=== PATIENT | male | born 1955 | race Caucasian/White ===

== ENCOUNTER 2017-09-29 07:20 | Day surgery (SDC) | payer OTHER ==
--- OUTSIDE RECORDS SUMMARY | 2017-09-29 07:23 | XMS REPORT ---
:1955 Author Organization e[employer]Works Care Team Providers Name Role Phone Lucía Medrano Provider Role Unavailable Allergies, Adverse Reactions, Alerts Substance Reaction Event Type Lisinopril chest tightness,dizziness Drug Allergy Problems Problem Type Condition Code Onset Dates Condition Status Assessment Dysuria R30.0 Active Assessment Hematuria, unspecified type R31.9 Active Problem Gastroesophageal reflux K21.9 Active Problem Benign prostatic hypertrophy N40.0 Active Problem Hyperlipidemia E78.5 Active Problem Male erectile disorder N52.9 Active Assessment Acute cystitis with hematuria N30.01 Active Problem Shoulder sprain S43.409A Active Problem Acute rhinitis J00 Active Medications Medication Code Code Instructions Start End Date Status Dosage System Date Ciprofloxacin [facility] 91337896593 500 MG Orally August Active 1 tablet HCl every 12 hrs 2017 Flomax [facility] 98317620515 0.4 MG Active TAKE ONE CAPSULE BY MOUTH EVERY DAY Cialis [facility] 21455030720 20 MG Orally Active 1 tablet Protonix [facility] 76107758548 40 MG Orally Active 1 tablet Once a day Valsartan [facility] 03216052938 40 MG Orally Active 1 tablet Once a day Results Name Result Date Reference Range Unit Abnormality Flag URINALYSIS AUTO W/O SCOPE (67581) ----NIT N 20170812 ----URO 1.0 20170812 ----PROTEIN TR 20170812 ----pH 7.0 20170812 ----BLO TR 20170812 ----GLUCOSE N 20170812 ----EITAN 2+ 20170812 ----BILIRUBIN N 20170812 ----KETONES N 20170812 ----SPECIFIC GRAVITY 1.015 20170812 Summary Purpose eClinicalWorks Submission
--- OUTSIDE RECORDS SUMMARY | 2017-09-29 07:23 | XMS REPORT ---
:1955 Author Organization [employer] Care Team Providers Name Role Phone George Palencia Provider Role Unavailable Allergies, Adverse Reactions, Alerts Substance Reaction Event Type Lisinopril chest tightness,dizziness Drug Allergy Problems Problem Type Condition Code Onset Dates Condition Status Problem Gastroesophageal reflux K21.9 Active Problem Benign prostatic hypertrophy N40.0 Active Problem Hyperlipidemia E78.5 Active Problem Male erectile disorder N52.9 Active Assessment Encounter for screening Z12.11 Active colonoscopy Problem Shoulder sprain S43.409A Active Problem Acute rhinitis J00 Active Medications Medication Code System Code Instructions Start End Date Status Dosage Date Valsartan [facility] 03458075644 40 MG Orally Active 1 tablet Once a day Cialis [facility] 49799790813 20 MG Orally Active 1 tablet Protonix [facility] 36668975041 40 MG Orally Active 1 tablet Once a day Flomax [facility] 42452349238 0.4 MG Active TAKE ONE CAPSULE BY MOUTH EVERY DAY Results No Known Results Summary Purpose eClinicalWorks Submission
[2017-09-29] MEDS ORDERED: Ringers Lactate 1,000 ML IV ONE (07:28)
[2017-09-29] MEDS ORDERED: PROPOFOL 200 MG/20 ML VIAL IV ONE (08:27)
--- NOTE | 2017-09-29 09:40 | ENDO RPT ---
[address], [address] COLONOSCOPY PROCEDURE REPORT EXAM DATE: 09/29/2017 PATIENT NAME: Dwight Vazquez MR #: [id number] BIRTHDATE: 1955 ATTENDING: George Palencia DR STATUS: outpatient SCOUT EXECUTIVE: Marisela Fallon and Rachelle Biswas RN INDICATIONS: The patient is a 61 yr old Male here for a colonoscopy due to colon cancer screening PROCEDURE PERFORMED: Colonoscopy and Screening Colonoscopy MEDICATIONS: Per Anesthesia. ESTIMATED BLOOD LOSS: None CONSENT: The patient understands the risks and benefits of the procedure and understands that these risks include, but are not limited to: sedation, allergic reaction, infection, perforation and/or bleeding. Alternative means of evaluation and treatment include, among others: physical exam, x-rays, and/or surgical intervention. The patient elects to proceed with this endoscopic procedure. DESCRIPTION OF PROCEDURE: During intra-op preparation period all mechanical medical equipment was checked for proper function. Hand hygiene and appropriate measures for infection prevention was taken. Procedure, possible complications, alternatives including, but not limited to possibility of bleeding, perforation, tear, infection, sepsis, need for surgery, need for blood transfusion, were explained to the patient. After the risks, benefits and alternatives of the procedure were thoroughly explained, Informed consent was verified, confirmed and timeout was successfully executed by the treatment team. The patient was placed in the left lateral position. A digital rectal exam was performed and revealed internal hemorrhoids. After appropriate level of anesthesia, the scope was passed. The EC-[id number] ([id number]) endoscope was introduced through the anus and advanced to the cecum, which was identified by both the appendix and ileocecal valve. The quality of the prep was fair. The instrument was then slowly withdrawn as the colon was fully examined. Scope withdrawal time was 10 minutes. COLON FINDINGS: Mild diverticulosis was noted throughout the entire examined colon. No bleeding was noted from the diverticulosis. Small internal hemorrhoids were found. Retroflexed views revealed no abnormalities. The scope was then completely withdrawn from the patient and the procedure terminated. ADVERSE EVENTS: There were no complications. IMPRESSIONS: 1. Mild diverticulosis was noted throughout the entire examined colon 2. Small internal hemorrhoids RECOMMENDATIONS: 1. fiber rich diet 2. follow-up: office 4 year(s) 3. Monitor for any evidence of rectal bleeding. 4. yearly hemoccult starting in 4 years RECALL: Return in 10 year(s) for Colonoscopy. George Palencia DR eSigned: George Palencia DR 09/29/2017 9:39 AM cc: CPT CODES: ICD9 CODES: PATIENT NAME: Dwight Vazquez MR#: [id number]
== END 2017-09-29 09:47 | disposition home or self-care (01) ==
LOC: OR 07:20
PROVIDERS: ATTEND Surgery
PROC: 0DJD8ZZ Inspection of Lower Intestinal Tract, Via Natural or Artificial Opening Endoscopic (ICD-10-PCS; principal; 2017-09-29 08:30)
DX: Z12.11 Encounter for screening for malignant neoplasm of colon (principal); K57.90 Diverticulosis of intestine, part unspecified, without perforation or abscess without bleeding; K64.8 Other hemorrhoids; K21.9 Gastro-esophageal reflux disease without esophagitis; E78.5 Hyperlipidemia, unspecified; N40.0 Benign prostatic hyperplasia without lower urinary tract symptoms; Z87.891 Personal history of nicotine dependence; Z80.1 Family history of malignant neoplasm of trachea, bronchus and lung; Z80.8 Family history of malignant neoplasm of other organs or systems; I10 Essential (primary) hypertension

== ENCOUNTER 2023-01-06 10:28 | Day surgery (SDC) | payer OTHER ==
[2023-01-03 13:36] LABS: Potassium 4.3 mEq/L (3.5-5.1)
[2023-01-06] MEDS ORDERED: Ringers Lactate 1,000 ML IV ONE (11:05)
[2023-01-06] MEDS ORDERED: LIDOCAINE 1% MPF 2 ML AMPULE ONE (11:19)
[2023-01-06] MEDS ORDERED: propofoL 200 MG/20 ML VIAL IV ONE (11:19)
[2023-01-06 12:39] VITALS: TEMP 97.3
[2023-01-06 13:28] VITALS: BP 148/80; O2SAT 98
== END 2023-01-06 13:15 | disposition home or self-care (01) ==
LOC: OR 10:28
PROVIDERS: ATTEND Surgery
PROC: 0DBL8ZX Excision of Transverse Colon, Via Natural or Artificial Opening Endoscopic, Diagnostic (ICD-10-PCS; 2023-01-06)
PROC: 0DBC8ZX Excision of Ileocecal Valve, Via Natural or Artificial Opening Endoscopic, Diagnostic (ICD-10-PCS; 2023-01-06)
PROC: 0DBH8ZX Excision of Cecum, Via Natural or Artificial Opening Endoscopic, Diagnostic (ICD-10-PCS; 2023-01-06)
PROC: 0DBK8ZX Excision of Ascending Colon, Via Natural or Artificial Opening Endoscopic, Diagnostic (ICD-10-PCS; principal; 2023-01-06 12:00)
DX: K59.09 Other constipation (principal); N42.9 Disorder of prostate, unspecified; K64.8 Other hemorrhoids; D12.2 Benign neoplasm of ascending colon; D12.3 Benign neoplasm of transverse colon; K52.9 Noninfective gastroenteritis and colitis, unspecified; K62.89 Other specified diseases of anus and rectum
CPT/HCPCS: 45385; 45380; 80048; 36415; 88305; J2704; J7120

== ENCOUNTER 2023-07-15 12:45 | Day surgery (SDC) | payer OTHER ==
[2023-07-11 15:03] LABS: Absolute Lymphocytes (CBC) 1.6 K/uL (0.7-4.9); Basophils % 0.3 % (0-1.3); Eosinophils % 0.5 % (0-4.4); Hematocrit 43.7 % (39.6-49.0); Hemoglobin 15.1 g/dL (13.6-17.9); Lymphocytes % 21.2 % (15.3-44.8); MCV 91.5 fL (80-100); MPV 8.2 fL (7.6-11.3); Platelets 207 thou/uL (152-406); RBC Red Blood Cell Count 4.77 M/uL (4.33-5.43)
[2023-07-11 15:12] LABS: Protime INR 1.02
[2023-07-11 15:17] LABS: Anion Gap 6.7 mEq/L (5.0-15.0); Potassium 4.7 mEq/L (3.5-5.1)
--- NOTE | 2023-07-11 15:32 | RAD REPORT ---
EXAM DESCRIPTION: Daysi Graham And Kristen (2 Views)07/11/2023 3:00 pm CLINICAL HISTORY: Preop for cardiac catheterization. Hypertension COMPARISON: 2016 FINDINGS: The lungs appear clear of acute infiltrate. The heart is normal size IMPRESSION: No acute abnormalities displayed
--- NOTE | 2023-07-14 16:05 | EKG ---
Test Date: 2023-07-11 Test Time: 15:44:06 Sports Manager: TOVA MEASUREMENT RESULTS: Intervals: Rate: 72 NM: 166 QRSD: 84 QT: 368 QTc: 402 [place]: P: 33 NM: 166 QRS: 26 T: 49 INTERPRETIVE STATEMENTS: Normal sinus rhythm Normal ECG Compared to ECG 04/30/2010 15:04:44 No significant changes Electronically Signed On 07-14-23 16:04:31 [employer] by Junior Salazar
[2023-07-15] MEDS: NA CHLORIDE 0.9% 500 ML ONE (13:00)
[2023-07-15] MEDS ORDERED: HEPA 1000U/500MLS 2,000 UNIT/1,000 ML BAG IV ONE (14:05)
[2023-07-15] MEDS ORDERED: LIDOCAINE 1% 20 ML MDV ONE (14:05)
[2023-07-15] MEDS ORDERED: ATROPINE SULF 1 MG/10 ML SYR IV ONE (14:05)
[2023-07-15] MEDS ORDERED: HEPARIN 5000 UNIT/ML 1 ML VIAL ONE (14:06)
[2023-07-15] MEDS ORDERED: CLOPIDOGREL 75 MG TABLET ONE (14:06)
[2023-07-15] MEDS ORDERED: HEPARIN 10,000 UNIT/10 ML VIAL IV ONE (14:06)
[2023-07-15] MEDS ORDERED: ASPIRIN 325 MG TAB ONE (14:06)
[2023-07-15] MEDS ORDERED: TICAGRELOR 90 MG TABLET PO ONE (14:06)
[2023-07-15] MEDS ORDERED: FENTANYL CITR 100 MCG/2 ML ONE (14:07)
[2023-07-15] MEDS ORDERED: VERAPAMIL HCL 10 MG/4 ML VIAL IV ONE (14:07)
[2023-07-15] MEDS ORDERED: MIDAZOLAM HCL 2 MG/2 ML INJ ONE (14:07)
[2023-07-15] MEDS ORDERED: FAMOTIDINE 20 MG TAB ONE (14:41)
[2023-07-15 18:42] VITALS: BP 145/81; TEMP 97.3; O2SAT 99
--- NOTE | 2023-07-15 19:09 | OP ---
Date of Procedure: 07/15/2023 Surgeon: LENO DANIEL Procedures Performed: 1.Selective coronary angiogram. 2.Left heart catheterization. 3.PCI of severe mid RCA stenosis, which is the culprit, used 4.0 x 20 mm Synergy drug-eluting stent. Indication: Unstable angina with abnormal stress test. Access: Right radial artery 6-Tongan, closed with TR band. Complications: None. Bleeding: Less than 50 mL. Anesthesia: Total sedation time was 55 minutes, used fentanyl and Versed. Description Of Procedure: After risks, benefits, and alternatives were explained, the patient agreed to procedure and signed informed consent. The patient was brought into the cardiac catheterization laboratory, prepped and draped in usual sterile fashion. Then, I accessed right radial artery using pediatric micropuncture kit, placed a 6-Tongan Slender sheath, and took 5-Tongan tiger 4 catheter int o the aortic root over J-wire, engaged left main, right coronary artery, took standard views. Cathet er was pushed over the wire into the LV, measured the LVEDP. Pullback did not record any gradient. I then exchanged for a 6-Tongan JR4 guide, engaged the RCA, and gave systemic heparin to assure ACT l evel above 250 throughout the procedure and loaded with 600 mg of Plavix and 325 aspirin and then I t ook short run-through wire into the RCA, placed it distally, took a 3.0 noncompliant balloon, lesion expanded very well, and then used 3.5 noncompliant balloon and the lesion expanded further. Then, I took 4.0 x 20 mm Synergy drug-eluting stent across the proximal to mid RCA stenosis, excellent expans ion, 0% residual stenosis and BONITA-3 flow at the end. Wire was removed. Final angiogram was satisfa ctory and removed the guide and the sheath, placed TR band with good hemostasis. Findings: 1.Left main, proximal 10% stenosis. It is very large vessel. 2.LAD, moderate to large size in the proximal segment. There is 30% to 40% stenosis. At the diagon al takeoff, there is focal 30% and then with luminal irregularity and tapers down to become smaller a rtery. 3.Left circumflex; moderate size, proximal 20%. The rest of the left circumflex with luminal irregu larities. 4.RCA, proximal 30%, mid and long, heavily calcified 90% stenosis, status post successful PCI as abo ve. Then, the artery becomes with luminal irregularities and mild aneurysmal dilation. Distally bef ore the bifurcation, there is focal 40% stenosis and the PDA has mid 60% stenosis. The LV has lumina l irregularities. 5.LVEDP is 8 mmHg. Conclusions: 1.Severe mid RCA stenosis, status post successful PCI as above. 2.Moderate coronary artery disease elsewhere. Plan: Aspirin, Plavix, high-dose statin. SR/MODL Voice ID: [id number] Report ID: [id number]
== END 2023-07-15 18:05 | disposition home or self-care (01) ==
LOC: CCL 12:45
PROVIDERS: ATTEND Internal Medicine Interventional Cardiology
DX: I25.110 Atherosclerotic heart disease of native coronary artery with unstable angina pectoris (principal); R42 Dizziness and giddiness; K21.9 Gastro-esophageal reflux disease without esophagitis; N40.0 Benign prostatic hyperplasia without lower urinary tract symptoms; Z79.899 Other long term (current) drug therapy
CPT/HCPCS: 93005; 85025; 80048; 36415; 85610; 85730; 71046; 93458; 76937; C1893; Q9967; C1725; C9600; J1644; J2001; J2250; J3010; J7040; 85347; 99152; 99153; J0461

== ENCOUNTER 2024-08-25 09:23 | Day surgery (SDC) | payer OTHER ==
[2024-08-24 12:14] LABS: Absolute Lymphocytes (CBC) 1.4 K/uL (0.7-4.9); Absolute Monocytes 0.4 K/uL (0.1-1.3); Absolute Neutrophil 5.7 K/uL (1.8-8.0); Basophils % 0.4 % (0-1.3); Eosinophils % 0.4 % (0-4.4); Hematocrit 42.6 % (39.6-49.0); Hemoglobin 15.4 g/dL (13.6-17.9); Lymphocytes % 18.2 % (15.3-44.8); MCHC 36.1 g/dL (32.0-36.0); MCV 94.2 fL (80-100); MPV 8.9 fL (7.6-11.3); Monocytes % 5.2 % (3.3-12.3); Neutrophils % 75.8 % (41.7-73.7); Platelets 200 thou/uL (152-406); RBC Red Blood Cell Count 4.52 M/uL (4.33-5.43); Red Cell Distribution Width 13.1 % (12.1-15.2)
[2024-08-24 12:20] LABS: PT Prothrombin Time 10.9 SECONDS (10-13.0); PTT, Activated Partial Thromb 30.8 SECONDS (27.2-37.4); Protime INR 0.95
[2024-08-24 12:33] LABS: Anion Gap 9.3 mEq/L (5.0-15.0); Potassium 4.3 mEq/L (3.5-5.1)
[2024-08-25] MEDS: Ringers Lactate 1,000 ML IV ONE (10:02)
[2024-08-25] MEDS ORDERED: LIDOCAINE 1% MPF 30 ML VIAL ONE (11:16)
[2024-08-25] MEDS ORDERED: propofoL 200 MG/20 ML VIAL IV ONE (11:16)
[2024-08-25] MEDS ORDERED: NA CHLORIDE 0.9% 1,000 ML ONE (12:21)
[2024-08-25 13:44] VITALS: TEMP 97.1
[2024-08-25 13:47] VITALS: BP 164/90; O2SAT 100
== END 2024-08-25 13:10 | disposition home or self-care (01) ==
LOC: OR 09:23
PROVIDERS: ATTEND Surgery
PROC: 0DBL8ZX Excision of Transverse Colon, Via Natural or Artificial Opening Endoscopic, Diagnostic (ICD-10-PCS; 2024-08-25)
PROC: 0DBF8ZX Excision of Right Large Intestine, Via Natural or Artificial Opening Endoscopic, Diagnostic (ICD-10-PCS; 2024-08-25)
PROC: 0DBK8ZX Excision of Ascending Colon, Via Natural or Artificial Opening Endoscopic, Diagnostic (ICD-10-PCS; principal; 2024-08-25 11:00)
DX: Z12.11 Encounter for screening for malignant neoplasm of colon (principal); N42.9 Disorder of prostate, unspecified; K64.8 Other hemorrhoids; D12.2 Benign neoplasm of ascending colon; D12.3 Benign neoplasm of transverse colon; K63.5 Polyp of colon
CPT/HCPCS: 36415; 80048; 85025; 85610; 85730; 88305; 93005; J2003; J2704; J7030; J7120